=== PATIENT | female | born 1995 | race Hispanic/Latino ===

== ENCOUNTER 2024-07-19 10:51 | Emergency (ER) | payer OTHER ==
[~2024-07-19] VITALS: Ht 157.5 cm; Wt 90.4 kg
[2024-07-19] MEDS ORDERED: LEVOTHYROXINE50 MCG PO (11:19)
[2024-07-19] MEDS: ACETAMINOPHEN 325 MG TAB PO ONE (11:34)
[2024-07-19] MEDS: LACTATED RINGER'S 1,000 ML INJ ONE (13:02)
[2024-07-19 16:13] VITALS: PULSE 81; RESP 14; TEMP 97.8; O2SAT 98
== END 2024-07-19 16:13 | disposition home or self-care (01) ==
LOC: FSED 10:55
DX: O20.0 Threatened abortion (principal); E11.65 Type 2 diabetes mellitus with hyperglycemia
CPT/HCPCS: 36415; 76801; 76830; 80048; 80076; 81003; 81025; 84702; 85025; 85610; 86900; 93976; 99284; J7121